=== PATIENT | male | born 1975 | race Caucasian/White ===

== ENCOUNTER 2017-06-26 18:10 | Emergency (ER) | payer SELFPAY ==
[~2017-06-26] VITALS: Ht 175.3 cm; Wt 159.1 kg
[~2017-06-26 18:10] MED LIST: BIO-CEF500 MG PO; FLEXERIL 1010 MG/TAB PO; FLOMAX 0.40.4 MG/CAP PO; MOTRIN 800800 MG/TAB PO; NORCO 325 MG-51 TAB PO; PHENOBARBITAL1 POW; PHENOBARBITAL100 M1 PO; PHENOBARBITAL100 MG PO; PHENOBARBITAL97.2 MG; PHENOBARBITAL97.2 MG PO; SYNTHROID0.075 MG/T PO; TEGRETOL 2200 MG/TA1 PO; TEGRETOL100 MG; TEGRETOL200 MG PO; ZOFRAN 4MG T4 MG/TAB PO
[2017-06-26 18:12] VITALS: BP 138/85; PULSE 75; TEMP 97.8
[2017-06-26] MEDS ORDERED: TEGRETOL 2200 MG/TA1 PO (18:15)
[2017-06-26] MEDS ORDERED: TEGRETOL-XR400 MG PO (18:16)
[2017-06-26] MEDS ORDERED: PHENOBARBITAL97.2 MG PO (18:17)
== END 2017-06-26 18:52 | disposition home or self-care (01) ==
LOC: COL.ER 18:10
DX: H60.91 Unspecified otitis externa, right ear (principal)

== ENCOUNTER 2017-08-17 08:58 | Emergency (ER) | payer MEDICAID ==
[~2017-08-17] VITALS: Ht 177.8 cm; Wt 143.2 kg
[~2017-08-17 08:58] MED LIST changes: +TEGRETOL-XR400 MG PO
[2017-08-17 09:01] VITALS: TEMP 98.4
[2017-08-17 09:49] LABS: PH 5 (5-8); SQUAMOUS EPITHELIAL 0-2 /hpf; URINE APPEARANCE Clear; URINE BACTERIA Rare /hpf; URINE BILIRUBIN Negative (NEGATIVE); URINE BLOOD 1+ (NEGATIVE); URINE COLOR Yellow; URINE GLUCOSE 2+ (NEGATIVE); URINE KETONE Negative (NEGATIVE); URINE RBC 0-2 /hpf; URINE UROBILINOGEN Negative (NEGATIVE); URINE WBC 0-2 /hpf
[2017-08-17 10:00] LABS: HEMATOCRIT 45.2 % (42.0-52.0); HEMOGLOBIN 15.6 g/dl (13.5-18.0); MEAN CELL VOLUME 89 fl (80.0-100.0); MEAN CORPUSCULAR HEMOGLOBIN 31 pg (27.0-31.0); MEAN CORPUSCULAR HGB CONC 35 g/dl (33.0-37.0); MEAN PLATELET VOLUME 8.5 fl (7.4-10.4); PLATELET COUNT 286 K/mm3 (130-400); REDCELL DISTRIBUTION WIDTH-CV 12.6 % (11.5-14.5); WHITE BLOOD COUNT 13.1 K/mm3 (4.8-10.8)
[2017-08-17 10:01] LABS: ADD PATHOLOGY DIFF REVIEW NO
[2017-08-17 10:11] LABS: ADJUSTED CALCIUM 8.5 mg/dL (8.4-10.2); ALBUMIN 4.1 gm/dL (3.5-5.0); BILIRUBIN,TOTAL 0.4 mg/dL (0.0-1.0); CALCIUM 8.6 mg/dL (8.4-10.2); CREATININE, serum 0.85 mg/dL (0.66-1.25); POTASSIUM 3.4 mmol/L (3.4-5.0); TOTAL PROTEIN 7.1 gm/dL (6.4-8.2)
[2017-08-17 10:21] LABS: BAND 11 % (0-10); BASOPHIL 1 % (0-2); METAMYELOCYTE 2 % (0-0); NEUTROPHILS 73 % (42.0-75.2); PLATELET ESTIMATE NORMAL (NORMAL); TOTAL CELLS COUNTED 100
[2017-08-17 11:15] LABS: CARBAMAZEPINE (TEGRETOL) 4.6 ug/mL (4.0-12.0)
[2017-08-17 12:20] VITALS: BP 137/83; PULSE 94
== END 2017-08-17 12:53 | disposition home or self-care (01) ==
LOC: COL.ER 08:58
PROVIDERS: Physician Assistant
DX: G40.909 Epilepsy, unspecified, not intractable, without status epilepticus (principal); Z87.442 Personal history of urinary calculi; Z98.890 Other specified postprocedural states
CPT/HCPCS: J2060; J7030

== ENCOUNTER 2018-07-31 15:26 | Emergency (ER) | payer BC ==
[~2018-07-31] VITALS: Ht 175.3 cm; Wt 151.8 kg
[2018-07-31 15:34] VITALS: TEMP 99.6
[2018-07-31 16:43] LABS: BASO # 0.1 (0.0-0.2); BASO % 0.7 % (0.0-2.0); GRAN # 5.1 (1.4-6.5); GRAN % 65.8 % (42.2-75.2); HEMOGLOBIN 14.8 g/dl (13.5-18.0); LYMPH # 1.8 (1.2-3.4); LYMPH % 23.2 % (20.0-51.0); MEAN CELL VOLUME 89 fl (80.0-100.0); MEAN CORPUSCULAR HEMOGLOBIN 31 pg (27.0-31.0); MEAN CORPUSCULAR HGB CONC 34 g/dl (33.0-37.0); MEAN PLATELET VOLUME 8.4 fl (7.4-10.4); MONO # 0.7 (0.1-0.6); MONO % 9.4 % (1.7-9.3); PLATELET COUNT 278 K/mm3 (130-400); RED BLOOD COUNT 4.86 M/mm3 (4.20-5.60); REDCELL DISTRIBUTION WIDTH-CV 12.3 % (11.5-14.5)
[2018-07-31 16:49] LABS: PROTHROMBIN TIME 11.1 SECONDS (9.7-12.8)
[2018-07-31 16:52] LABS: PARTIAL THROMBOPLASTIN TIME 35.9 SECONDS (26.0-37.0)
[2018-07-31 16:57] LABS: ALANINE AMINOTRANSFERASE 50 U/L (21-72); ALBUMIN 3.7 gm/dL (3.5-5.0); ALKALINE PHOSPHATASE 110 U/L (50-136); ANION GAP 10 mmol/L (7-16); AST,SGOT 39 U/L (15-37); BILIRUBIN,TOTAL 0.2 mg/dL (0.0-1.0); BLOOD UREA NITROGEN 13 mg/dL (9-20); CALCIUM 8.7 mg/dL (8.4-10.2); CARBON DIOXIDE 25 mmol/L (22-30); CHLORIDE 103 mmol/L (98-107); CREATININE, serum 0.79 mg/dL (0.66-1.25); GLUCOSE 107 mg/dL (74-106); POTASSIUM 3.8 mmol/L (3.4-5.0); SODIUM 138 mmol/L (137-145); TOTAL PROTEIN 6.9 gm/dL (6.4-8.2)
[2018-07-31 17:08] LABS: TROPONIN-I < 0.012 ng/mL (0.000-0.034)
[2018-07-31 17:40] VITALS: BP 133/76; PULSE 93
== END 2018-07-31 17:40 | disposition home or self-care (01) ==
LOC: COL.ER 15:26
PROVIDERS: Family Medicine
DX: R53.83 Other fatigue (principal); G47.30 Sleep apnea, unspecified; G40.909 Epilepsy, unspecified, not intractable, without status epilepticus

== ENCOUNTER 2018-09-19 03:01 | Emergency (ER) | payer SELFPAY ==
[~2018-09-19] VITALS: Ht 170.2 cm; Wt 118.2 kg
[2018-09-19 03:17] VITALS: TEMP 98.2
[2018-09-19 03:21] LABS: HEMATOCRIT 49.5 % (42.0-52.0); HEMOGLOBIN 15.5 g/dl (13.5-18.0); MEAN CELL VOLUME 96 fl (80.0-100.0); MEAN CORPUSCULAR HEMOGLOBIN 30 pg (27.0-31.0); MEAN CORPUSCULAR HGB CONC 31 g/dl (33.0-37.0); MEAN PLATELET VOLUME 8.7 fl (7.4-10.4); PLATELET COUNT 340 K/mm3 (130-400); RED BLOOD COUNT 5.14 M/mm3 (4.20-5.60); REDCELL DISTRIBUTION WIDTH-CV 12.4 % (11.5-14.5)
[2018-09-19 03:33] LABS: ALBUMIN 4.8 gm/dL (3.5-5.0); BILIRUBIN,TOTAL 0.4 mg/dL (0.0-1.0); CALCIUM 9.1 mg/dL (8.4-10.2); CREATININE, serum 1.22 mg/dL (0.66-1.25); TOTAL PROTEIN 7.9 gm/dL (6.4-8.2)
[2018-09-19 03:49] LABS: PROLACTIN 54.1 ng/mL (3.7-17.9)
[2018-09-19 04:00] LABS: BAND 2 % (0-10); BASOPHIL 1 % (0-2); EOSINOPHIL 2 % (0-4); LYMPHOCYTE 34 % (20.0-51.0); NEUTROPHILS 44 % (42.0-75.2); PLATELET ESTIMATE NORMAL (NORMAL)
[2018-09-19 07:35] VITALS: BP 126/72; PULSE 82
== END 2018-09-19 07:37 | disposition home or self-care (01) ==
LOC: COL.ER 03:01
PROVIDERS: Emergency Medicine
DX: G40.909 Epilepsy, unspecified, not intractable, without status epilepticus (principal)
CPT/HCPCS: J2060; J2405; J7030

== ENCOUNTER 2019-01-09 08:56 | Outpatient (RCR) | payer MEDICAID ==
[~2019-01-09 08:56] MED LIST changes: +PHENOBARBITAL16.2 MG PO; -TEGRETOL-XR400 MG PO
[2019-02-07] MEDS ORDERED: VITAMIN D 50,1.25 MG PO (09:51)
[2019-02-07] MEDS ORDERED: LIPITOR 40MG TA40 MG PO (09:51)
[2019-02-07] MEDS ORDERED: SYNTHROID 0.0.025 MG PO (09:52)
[2019-02-07] MEDS ORDERED: LASIX 20MG TABL20 MG PO (09:52)
== END 2019-02-07 10:20 | disposition home or self-care (01) ==
LOC: WSPT 08:56
DX: Z53.09 Procedure and treatment not carried out because of other contraindication (principal)

== ENCOUNTER → 2019-02-07 | Outpatient (CLI) | payer MEDICAID ==
[~2019-02-07] VITALS: Ht 172.7 cm; Wt 167.6 kg
[~2019-02-07] MED LIST changes: +LASIX 20MG TABL20 MG PO; +LIPITOR 40MG TA40 MG PO; +SYNTHROID 0.0.025 MG PO; +VITAMIN D 50,1.25 MG PO
[2019-02-07 09:15] VITALS: BP 120/84; PULSE 84
== END ==
LOC: LIGHT 08:30
DX: E88.81 Metabolic syndrome and other insulin resistance (principal); G47.33 Obstructive sleep apnea (adult) (pediatric); R73.01 Impaired fasting glucose; E66.01 Morbid (severe) obesity due to excess calories; Z68.43 Body mass index [BMI] 50.0-59.9, adult; Z71.3 Dietary counseling and surveillance
CPT/HCPCS: G0463

== ENCOUNTER → 2019-02-20 | Outpatient (CLI) | payer MEDICAID | LOC: LIGHT 14:26 | DX: E88.81 Metabolic syndrome and other insulin resistance (principal); G47.33 Obstructive sleep apnea (adult) (pediatric); R73.01 Impaired fasting glucose; E66.01 Morbid (severe) obesity due to excess calories; Z68.43 Body mass index [BMI] 50.0-59.9, adult; Z71.3 Dietary counseling and surveillance ==

== ENCOUNTER → 2019-02-23 | Outpatient (CLI) | payer MEDICAID | LOC: LIGHT 10:01 | DX: E88.81 Metabolic syndrome and other insulin resistance (principal); G47.33 Obstructive sleep apnea (adult) (pediatric); R73.01 Impaired fasting glucose; E66.01 Morbid (severe) obesity due to excess calories; Z68.43 Body mass index [BMI] 50.0-59.9, adult; Z71.3 Dietary counseling and surveillance ==

== ENCOUNTER → 2019-02-27 | Outpatient (CLI) | payer MEDICAID ==
[~2019-02-27] VITALS: Ht 172.7 cm; Wt 167.4 kg
[2019-02-27 16:31] VITALS: BP 120/76; PULSE 88
== END ==
LOC: LIGHT 10:45
DX: R73.01 Impaired fasting glucose (principal); G47.33 Obstructive sleep apnea (adult) (pediatric); E66.01 Morbid (severe) obesity due to excess calories; Z68.43 Body mass index [BMI] 50.0-59.9, adult; Z71.3 Dietary counseling and surveillance
CPT/HCPCS: G0463

== ENCOUNTER → 2019-04-03 | Outpatient (CLI) | payer MEDICAID ==
[~2019-04-03] VITALS: Ht 172.7 cm; Wt 167.4 kg
[2019-04-03 16:41] VITALS: BP 120/70; PULSE 88
== END ==
LOC: LIGHT 11:58
DX: E88.81 Metabolic syndrome and other insulin resistance (principal); G47.33 Obstructive sleep apnea (adult) (pediatric); R73.01 Impaired fasting glucose; E66.01 Morbid (severe) obesity due to excess calories; Z68.43 Body mass index [BMI] 50.0-59.9, adult; Z71.3 Dietary counseling and surveillance
CPT/HCPCS: G0463

== ENCOUNTER 2019-09-07 08:20 | Emergency (ER) | payer SELFPAY ==
[~2019-09-07] VITALS: Ht 172.7 cm; Wt 170.5 kg
[2019-09-07 08:58] LABS: BASO % 0.2 % (0.0-2.0); GRAN % 85.3 % (42.2-75.2); HEMATOCRIT 44.6 % (42.0-52.0); HEMOGLOBIN 14.9 g/dl (13.5-18.0); LYMPH % 7.8 % (20.0-51.0); MEAN CELL VOLUME 92 fl (80.0-100.0); MEAN CORPUSCULAR HEMOGLOBIN 31 pg (27.0-31.0); MEAN CORPUSCULAR HGB CONC 33 g/dl (33.0-37.0); MEAN PLATELET VOLUME 8.7 fl (7.4-10.4); MONO # 0.8 (0.1-0.6); MONO % 6.1 % (1.7-9.3); PLATELET COUNT 249 K/mm3 (130-400); RED BLOOD COUNT 4.86 M/mm3 (4.20-5.60); REDCELL DISTRIBUTION WIDTH-CV 12.8 % (11.5-14.5)
[2019-09-07 09:21] LABS: ALBUMIN 4.3 gm/dL (3.5-5.0); BILIRUBIN,TOTAL 0.3 mg/dL (0.0-1.0); CARBAMAZEPINE (TEGRETOL) 7.3 ug/mL (4.0-12.0); CREATININE, serum 1.01 (0.66-1.25); POTASSIUM 4.4 mmol/L (3.4-5.0); TOTAL PROTEIN 7.4 gm/dL (6.4-8.2)
[2019-09-07 09:36] LABS: TSH w REFLEX 2.96 uIU/mL (0.465-4.680)
[2019-09-07 10:15] VITALS: TEMP 100.7
[2019-09-07 10:17] LABS: COLLECTION METHOD CLEAN CATCH
[2019-09-07 10:26] LABS: MUCOUS Present /lpf; PH 5 (5-8); SQUAMOUS EPITHELIAL 0-2 /hpf; URINE APPEARANCE Hazy; URINE BACTERIA None Seen /hpf; URINE BILIRUBIN Negative (NEGATIVE); URINE BLOOD 1+ (NEGATIVE); URINE COLOR Yellow; URINE GLUCOSE 1+ (NEGATIVE); URINE KETONE Negative (NEGATIVE); URINE LEUKOCYTE ESTERASE Negative (NEGATIVE); URINE NITRATE Negative (NEGATIVE); URINE PROTEIN(semi-quant) Negative (NEGATIVE); URINE UROBILINOGEN Negative (NEGATIVE)
[2019-09-07] MEDS ORDERED: CEPHALEXIN500 M1 PO (11:31)
[2019-09-07 11:55] VITALS: BP 105/59; PULSE 93
== END 2019-09-07 11:55 | disposition home or self-care (01) ==
LOC: COL.ER 08:20
PROVIDERS: Physician Assistant
DX: L03.116 Cellulitis of left lower limb (principal); R50.9 Fever, unspecified; E03.9 Hypothyroidism, unspecified; G40.909 Epilepsy, unspecified, not intractable, without status epilepticus
CPT/HCPCS: J7030; Q9967

== ENCOUNTER 2021-12-08 19:26 | Emergency (ER) | payer MEDICAID ==
[~2021-12-08 19:26] MED LIST changes: +CEPHALEXIN500 M1 PO
[2021-12-08 20:26] LABS: BASO % 0.2 % (0.0-2.0); GRAN # 4.4 K/mm3 (1.4-6.5); GRAN % 69.7 % (42.2-75.2); HEMATOCRIT 46.3 % (42.0-52.0); LYMPH % 16.6 % (20.0-51.0); MEAN CELL VOLUME 85 fl (80.0-100.0); MEAN CORPUSCULAR HEMOGLOBIN 30 pg (27-31); MEAN CORPUSCULAR HGB CONC 35 g/dl (33.0-37.0); MEAN PLATELET VOLUME 9.1 fl (7.4-10.4); MONO # 0.8 K/mm3 (0.1-0.6); MONO % 12.9 % (1.7-9.3); PLATELET COUNT 251 K/mm3 (130-400); RED BLOOD COUNT 5.43 M/mm3 (4.20-5.60); REDCELL DISTRIBUTION WIDTH-CV 12.5 % (11.5-14.5)
[2021-12-08 20:37] LABS: ALBUMIN 3.5 gm/dL (3.5-5.0); BILIRUBIN,TOTAL 0.6 mg/dL (0.2-1.2); CALCIUM 8.7 mg/dL (8.4-10.2); POTASSIUM 3.6 mmol/L (3.5-4.5); TOTAL PROTEIN 7.3 gm/dL (6.2-8.1)
[2021-12-08 21:36] LABS: COLLECTION METHOD CLEAN CATCH
[2021-12-08 21:51] LABS: MUCOUS Present (NOT PRESENT); PH 5 (5-8); SQUAMOUS EPITHELIAL 0-2 /hpf (0-10); URINE APPEARANCE Hazy (CLEAR/HAZY); URINE BACTERIA Rare /hpf (NONE SEEN); URINE BILIRUBIN Negative (NEGATIVE); URINE BLOOD Negative (NEGATIVE); URINE COLOR Amber (YELLOW); URINE GLUCOSE Negative (NEGATIVE); URINE KETONE Trace (NEGATIVE); URINE LEUKOCYTE ESTERASE Negative (NEGATIVE); URINE NITRATE Negative (NEGATIVE); URINE PROTEIN(semi-quant) 2+ (NEGATIVE); URINE RBC 0-2 /hpf (0-2)
[2021-12-08] MEDS ORDERED: ZOFRAN ODT4 MG PO (22:11)
[2021-12-08 22:29] VITALS: BP 109/68; PULSE 106; TEMP 99.3
== END 2021-12-08 22:29 | disposition home or self-care (01) ==
LOC: COL.ER 19:26
PROVIDERS: Physician Assistant
DX: U07.1 COVID-19 (principal); I10 Essential (primary) hypertension; E11.9 Type 2 diabetes mellitus without complications; E66.9 Obesity, unspecified
CPT/HCPCS: J2405; J7030

== ENCOUNTER 2021-12-15 12:25 | Inpatient (IN) | payer MEDICAID ==
[~2021-12-15] VITALS: Ht 175.3 cm; Wt 158.2 kg
[~2021-12-15 12:25] MED LIST changes: +ZOFRAN ODT4 MG PO
[2021-12-15 13:06] LABS: HEMATOCRIT 43.8 % (42.0-52.0); HEMOGLOBIN 15.4 g/dl (13.5-18.0); MEAN CELL VOLUME 86 fl (80.0-100.0); MEAN CORPUSCULAR HEMOGLOBIN 30 pg (27-31); MEAN CORPUSCULAR HGB CONC 35 g/dl (33.0-37.0); MEAN PLATELET VOLUME 8.7 fl (7.4-10.4); PLATELET COUNT 473 K/mm3 (130-400); RED BLOOD COUNT 5.12 M/mm3 (4.20-5.60); REDCELL DISTRIBUTION WIDTH-CV 12.4 % (11.5-14.5)
[2021-12-15 13:21] LABS: BILIRUBIN,TOTAL 0.6 mg/dL (0.2-1.2); CALCIUM 8.7 mg/dL (8.4-10.2); CREATININE, serum 0.9 mg/dL (0.72-1.25); POTASSIUM 3.3 mmol/L (3.5-4.5)
[2021-12-15 13:26] LABS: BAND 2 % (0-10); LYMPHOCYTE 13 % (20.0-51.0); NEUTROPHILS 81 % (42.0-75.2)
[2021-12-15 13:27] LABS: PLATELET ESTIMATE INCREASED (NORMAL)
[2021-12-15 17:54] LABS: ARTERIAL BLD GAS O2 SATURATION 94.2 % (92-100); ARTERIAL BLD GAS TCO2 CT 23.5; ARTERIAL BLOOD GAS BASE EXCESS 1.2 (-2-2); ARTERIAL BLOOD GAS HCO3 22.7 meq/L (22-26); ARTERIAL BLOOD GAS PCO2 28.2 mmHg (35-45); ARTERIAL BLOOD GAS PO2 64.1 mmHg (80-100); ARTERIAL BLOOD GAS pH 7.52 (7.35-7.45)
[2021-12-15 18:08] LABS: TRICYCLIC ANTIDEPRESS URINE NEGATIVE
[2021-12-16 06:38] LABS: HEMATOCRIT 41.3 % (42.0-52.0); HEMOGLOBIN 14.3 g/dl (13.5-18.0); MEAN CELL VOLUME 86 fl (80.0-100.0); MEAN CORPUSCULAR HEMOGLOBIN 30 pg (27-31); MEAN CORPUSCULAR HGB CONC 35 g/dl (33.0-37.0); MEAN PLATELET VOLUME 8.4 fl (7.4-10.4); REDCELL DISTRIBUTION WIDTH-CV 12.6 % (11.5-14.5)
[2021-12-16 06:58] LABS: PLATELET COUNT 371 K/mm3 (130-400)
[2021-12-16 07:25] LABS: BAND 2 % (0-10); LYMPHOCYTE 13 % (20.0-51.0); NEUTROPHILS 81 % (42.0-75.2); PLATELET ESTIMATE NORMAL (NORMAL)
[2021-12-16 14:45] LABS: CALCIUM 8.7 mg/dL (8.4-10.2); CREATININE, serum 0.84 mg/dL (0.72-1.25); POTASSIUM 4.8 mmol/L (3.5-4.5)
[2021-12-16 21:18] VITALS: BP 95/58; PULSE 100; TEMP 98.7
[2021-12-17 00:42] VITALS: BP 141/62; PULSE 95; TEMP 97.5
[2021-12-17 05:01] VITALS: BP 116/70; PULSE 75; TEMP 990
--- NOTE | 2021-12-17 05:35 | NUR ---
Resting quietly, no s/s of hypo/hyper glycemia, patient teaching re: antibiotics, levothyroxine, covid PNA, verbalizes understanding, tolerating general diet, independent in room call lee w/i reach.
[2021-12-17 07:22] LABS: ALBUMIN 2.7 gm/dL (3.5-5.0); BILIRUBIN,TOTAL 0.3 mg/dL (0.2-1.2); CALCIUM 8.5 mg/dL (8.4-10.2); CREATININE, serum 0.82 mg/dL (0.72-1.25); POTASSIUM 3.8 mmol/L (3.5-4.5)
[2021-12-17 09:05] VITALS: BP 108/65; PULSE 86; TEMP 98.4
--- NOTE | 2021-12-17 10:08 | NUR ---
The patient is COVID positive. SW contacted the patient to discuss discharge plan. The patient lives in [place] with his , Cyndi (ph#[phone]), and four of their children. He reports independence with ADLs and does not have any DME. The patient's PCP is Dr. Rodriguez at the [facility] in [facility]. The patient does not have a DPOA-HC. The patient plans on returning home with his family upon discharge. SW to continue to monitor. *Discharge plan: home with family*
[2021-12-17] MEDS ORDERED: KEPPRA 500MG500 MG PO (11:08)
[2021-12-17] MEDS ORDERED: MONODOX100 PO (11:09)
[2021-12-17] MEDS ORDERED: RT Albuterol HFA MDI IH (11:10)
[2021-12-17] MEDS ORDERED: OMNICEF 300MG300 MG PO (11:10)
[2021-12-17 11:14] VITALS: BP 143/87; PULSE 79; TEMP 98.4
[2021-12-17] MEDS ORDERED: GLUCOPHAGE500 MG/TAB PO (11:20)
--- NOTE | 2021-12-17 16:37 | NUR ---
DISCHARGE INSTRUCTIONS REVIEWED WITH PT. PT VERBALIZED UNDERSTANDING. REVIEWED ALL FOLLOW UPS WITH DATES AND TIMES OF EACH APPT. REINFORCED THAT PT CANNOT DRIVE PER STATE LAW FOR 6 MO. PT DID NOT ACCEPT THIS VERBALIZED THAT HE WILL DO WHAT HE WANTS.
== END 2021-12-17 16:39 | disposition home or self-care (01) | DRG 102 ==
LOC: COL.ER 12:25 → MEDICAL 12-16 14:50
PROVIDERS: Nurse Practitioner Family; Student in an Organized Health Care Education/Training Program; ADMIT Internal Medicine
DX: G43.909 Migraine, unspecified, not intractable, without status migrainosus (principal); U07.1 COVID-19; J12.82 Pneumonia due to coronavirus disease 2019; G93.49 Other encephalopathy; E87.2 Acidosis; E87.6 Hypokalemia; E03.9 Hypothyroidism, unspecified; I45.81 Long QT syndrome; R73.9 Hyperglycemia, unspecified; E78.5 Hyperlipidemia, unspecified; Z79.890 Hormone replacement therapy; Z91.14 Patient's other noncompliance with medication regimen
CPT/HCPCS: 99223-AI; 99233-AI; 99239; J0696; J1100; J1650; J1815; J1953; J2060; J7030

== ENCOUNTER 2022-04-27 09:24 | Emergency (ER) | payer MEDICAID ==
[~2022-04-27] VITALS: Ht 175.3 cm; Wt 150.0 kg
[~2022-04-27 09:24] MED LIST changes: +GLUCOPHAGE500 MG/TAB PO; +KEPPRA 500MG500 MG PO; +MONODOX100 PO; +OMNICEF 300MG300 MG PO; +RT Albuterol HFA MDI IH
[2022-04-27 09:26] VITALS: TEMP 98.9
[2022-04-27 09:40] LABS: COLLECTION METHOD CLEAN CATCH
[2022-04-27 09:41] LABS: BASO # 0.1 K/mm3 (0.0-0.2); BASO % 0.6 % (0.0-2.0); EOS # 0.5 K/mm3 (0.0-0.7); EOS % 4.5 % (0.0-4.0); GRAN # 5.9 K/mm3 (1.4-6.5); HEMATOCRIT 46.3 % (42.0-52.0); HEMOGLOBIN 16.1 g/dl (13.5-18.0); LYMPH # 4.2 K/mm3 (1.2-3.4); MEAN CELL VOLUME 87 fl (80.0-100.0); MEAN CORPUSCULAR HEMOGLOBIN 30 pg (27-31); MEAN CORPUSCULAR HGB CONC 35 g/dl (33.0-37.0); MEAN PLATELET VOLUME 9.1 fl (7.4-10.4); MONO # 1.1 K/mm3 (0.1-0.6); MONO % 9.3 % (1.7-9.3); PLATELET COUNT 335 K/mm3 (130-400); REDCELL DISTRIBUTION WIDTH-CV 12.7 % (11.5-14.5)
[2022-04-27 09:49] LABS: MUCOUS Present (NOT PRESENT); PH 5 (5-8); SQUAMOUS EPITHELIAL 0-2 /hpf (0-10); URINE APPEARANCE Clear (CLEAR/HAZY); URINE BACTERIA Rare /hpf (NONE SEEN); URINE BILIRUBIN Negative (NEGATIVE); URINE BLOOD 1+ (NEGATIVE); URINE COLOR Yellow (YELLOW); URINE GLUCOSE Negative (NEGATIVE); URINE KETONE Negative (NEGATIVE); URINE LEUKOCYTE ESTERASE Negative (NEGATIVE); URINE NITRATE Negative (NEGATIVE); URINE PROTEIN(semi-quant) 1+ (NEGATIVE); URINE RBC 0-2 /hpf (0-2); URINE UROBILINOGEN Negative (NEGATIVE)
[2022-04-27 09:58] LABS: ALBUMIN 3.7 gm/dL (3.5-5.0); BILIRUBIN,TOTAL 0.5 mg/dL (0.2-1.2); CALCIUM 8.6 mg/dL (8.4-10.2); POTASSIUM 3.5 mmol/L (3.5-4.5); TOTAL PROTEIN 7.1 gm/dL (6.2-8.1)
[2022-04-27 10:15] VITALS: BP 137/96; PULSE 104
[2022-04-27 10:17] LABS: PROLACTIN 33.7 ng/mL (3.46-19.40)
== END 2022-04-27 10:28 | disposition home or self-care (01) ==
LOC: COL.ER 09:24
PROVIDERS: Emergency Medicine
DX: G40.909 Epilepsy, unspecified, not intractable, without status epilepticus (principal); S00.81XA Abrasion of other part of head, initial encounter; Z91.14 Patient's other noncompliance with medication regimen; X58.XXXA Exposure to other specified factors, initial encounter
CPT/HCPCS: J1953

== ENCOUNTER 2023-12-08 17:34 | Emergency (ER) | payer MEDICAID ==
[~2023-12-08] VITALS: Ht 175.3 cm; Wt 157.3 kg
[2023-12-08 17:41] VITALS: TEMP 98.6
[2023-12-08 18:12] LABS: BASO % 0.3 % (0.0-2.0); GRAN # 11.2 K/mm3 (1.4-6.5); GRAN % 81.6 % (42.2-75.2); HEMATOCRIT 47.3 % (42.0-52.0); HEMOGLOBIN 16.2 g/dl (13.5-18.0); LYMPH # 1.3 K/mm3 (1.2-3.4); LYMPH % 9.5 % (20.0-51.0); MEAN CELL VOLUME 87 fl (80.0-100.0); MEAN CORPUSCULAR HEMOGLOBIN 30 pg (27-31); MEAN CORPUSCULAR HGB CONC 34 g/dl (33.0-37.0); MEAN PLATELET VOLUME 8.7 fl (7.4-10.4); MONO # 1.1 K/mm3 (0.1-0.6); MONO % 8.1 % (1.7-9.3); PLATELET COUNT 352 K/mm3 (130-400); RED BLOOD COUNT 5.45 M/mm3 (4.20-5.60); REDCELL DISTRIBUTION WIDTH-CV 12.8 % (11.5-14.5)
[2023-12-08] MEDS ORDERED: levETIRAcetam 100 ML IV ONE (18:15)
[2023-12-08 18:26] LABS: ALBUMIN 3.9 gm/dL (3.5-5.0); BILIRUBIN,TOTAL 0.6 mg/dL (0.2-1.2); CALCIUM 9.4 mg/dL (8.4-10.2); CREATININE, serum 0.91 mg/dL (0.72-1.25); POTASSIUM 3.7 mmol/L (3.5-4.5); TOTAL PROTEIN 7.2 gm/dL (6.2-8.1)
[2023-12-08] MEDS ORDERED: KEPPRA750 MG PO (20:06)
[2023-12-08 20:31] VITALS: BP 147/81; PULSE 80
== END 2023-12-08 20:30 | disposition home or self-care (01) ==
LOC: COL.ER 17:34
PROVIDERS: Personal Emergency Response Attendant
DX: R56.9 Unspecified convulsions (principal)
CPT/HCPCS: J1953